=== PATIENT | male | born 1940 | race Caucasian/White ===

== ENCOUNTER → 2016-09-14 | Outpatient (CLI) | payer MEDICARE | LOC: LAB 08:12 | PROVIDERS: Internal Medicine Nephrology | DX: N18.3 Chronic kidney disease, stage 3 (moderate) (principal) | CPT/HCPCS: 36415; 80048; 81001; 82570; 84156 ==

== ENCOUNTER → 2016-09-21 | Outpatient (CLI) | payer MEDICARE | LOC: LAB 13:13 | DX: N39.0 Urinary tract infection, site not specified (principal); N18.3 Chronic kidney disease, stage 3 (moderate); R80.9 Proteinuria, unspecified | CPT/HCPCS: 87086 ==